=== PATIENT | female | born 1990 | race Caucasian/White ===

== ENCOUNTER 2016-11-16 20:36 | Emergency (ER) | payer OTHER ==
--- NOTE | 2016-11-17 07:07 | ER ---
ADMIT: 11/16/2016 RM/LOC: ER [facility] MR#: [id number] [facility] [place], [place] [address] ANGELA GRACIA [address] [place] [address] CELL Emergency Room Report SEX: F AGE: 26 : 1990 DATE: 11/16/2016 CHIEF COMPLAINT: Post tonsillectomy bleed. HISTORY OF PRESENT ILLNESS: Ms. Miller is 26 years old. She underwent tonsillectomy by me six days ago. She developed bleeding today from her tonsil and presented to [facility]. Examination showed some bright red bleeding at the time of examination, but did slow down spontaneously. I recommended transfer to [facility] where I performed examination. The bleeding did stop spontaneously prior to her admission to [facility]. Examination shows Angela to be in no acute distress. She is well hydrated (received IV fluids well at [facility]). There was no active bleeding identified, but there was a clot in the right tonsillar fossa. I removed this with alligator forceps. Did not stimulate fresh bleeding, and there was no evidence of active bleeding from either side of the pharynx. She does have healing tonsillar fossa. No edema, no exudate or evidence of active infection. No cervical adenopathy. Nose was clear. Lungs clear. IMPRESSION: Post tonsillectomy bleed at six days. Recommend, we will maintain a monitor watchful approach. She and her will stay in [place] for this evening. I did not feel she needed hospitalization. She may stay in a motel room, but if bleeding recurs, she will return immediately to [facility]. If no bleeding occurs, I will then re-examine her at 0820 hours in the morning in my office. She and her are in good understanding and acceptance of recommendation. We will continue Lortab elixir 15 mL of the q.3 hours p.r.n. pain. We will discontinue ibuprofen. She states that her ulcer has flared through this past week and she is continuing taking Prilosec. Also, recommend use of Tums on p.r.n. basis. Giancarlo Woodard MD/ lesley JOB #: [id number] CC: Tonny Perdue MD, Attending Physician Ulisses Ramirez MD
--- NOTE | 2016-11-27 16:41 | ER ---
ADMIT: 11/16/2016 RM/LOC: ER [facility] MR#: [id number] [facility] [place], [place] [id number] DAVID GRACIA [address] [place] [address] CELL Emergency Room Report SEX: F AGE: 26 : 1990 DATE: 11/16/2016 A 26-year-old seen in the Emergency Department by Dr. Woodard. She came down from [place]. She apparently had a post tonsillar bleed and had stopped by the time she arrived here. Dr. Woodard saw the patient in the Emergency Department. See T-sheet for history and physical. The patient discharged, instructed to follow up as per Dr. Woodard, which was this week with diagnosis being post tonsillar bleed which has resolved. Jaquan Buckley MD/ lesley JOB #: [id number] CC: Tonny Perdue MD, Attending Physician
== END 2016-11-16 21:45 | disposition home or self-care (01) ==
LOC: ER 20:36
DX: K91.840 Postprocedural hemorrhage of a digestive system organ or structure following a digestive system procedure (principal); Z90.89 Acquired absence of other organs; Z79.899 Other long term (current) drug therapy